=== PATIENT | female | born 1990 | race Asian ===

== ENCOUNTER 2019-07-29 01:31 | Emergency (ER) | payer MEDICAID ==
[~2019-07-29] VITALS: Ht 162.6 cm; Wt 52.2 kg
--- NOTE | 2019-07-29 01:43 | NUR ---
ED Nurse Note: Patient currently rendering urine sample, presents with complaints of hematuria since 2029. Will continue to monitor.
[2019-07-29 01:44] VITALS: BP 117/74
--- NOTE | 2019-07-29 01:52 | Emergency Room Report ---
History of Present Illness General Chief Complaint: Female Urogenital Problems Source: Patient Present Illness HPI Disclaimer: Please note that this report is being documented using DRAGON technology. This can lead to erroneous entry secondary to incorrect interpretation by the dictating instrument. HPI: Otherwise healthy 29-year-old female presents for evaluation of dysuria and hematuria. Symptoms began earlier this evening. Notes of burning sensation and urinary frequency over the past few hours. Believes it may be a urinary tract infection and took Azo. LMP approximately 1 month ago but does not believe it is related to her period. Denies any flank pain, fever, chills, vomiting or diarrhea. PMH: Denies PSH: Denies Allergies: Macrolides Social Hx: Denies Allergies: Coded Allergies: No Known Allergies (Unverified , 07/29/19) Patient History Last Menstrual Period: 07/03/19 Now: No : 2 Para: 2 Nursing Documentation-PMH Past Medical History: No History, Except For Review of Systems All Other Systems: negative except mentioned in HPI Physical Exam Vital Signs Date Time Temp Pulse Resp B/P (MAP) Pulse Ox O2 Delivery O2 Flow Rate FiO2 07/29/19 01:39 99.5 70 18 117/74 (88) 99 Room Air General: Awake and alert, no acute distress HEENT: NC/AT. EOMI. Resp: Normal work of breathing Abdomen: Nondistended, soft. Mild tenderness in the suprapubic region. No CVA tenderness Skin: Intact. No abrasions, laceration or rash over the exposed skin MSK: Normal tone and bulk. Moving all extremities. No obvious deformity. Neuro: Awake and alert. Mentating appropriately Medical Decision Making Diagnostic Impression: Primary Impression: Urinary tract infection ER Course 29-year-old female presents for evaluation of dysuria and hematuria. UA and hCG test were ordered on arrival. Shows urinary tract infection with a negative hCG. The patient be started on Keflex and discharged to follow-up with her PMD. Stable vital signs and no clinical evidence of pyelonephritis. We discussed reasons to return to the emergency department. She understands and agrees with this treatment plan. Laboratory Tests Test 07/29/19 01:40 Urine Color Angela Urine Appearance Cloudy Urine pH 6.5 (4.5-8.0) Urine Specific Wolverine 1.010 (1.005-1.035) Urine Protein 3+ (NEGATIVE) H Urine Glucose (UA) Negative (NEGATIVE) Urine Ketones Negative (NEGATIVE) Urine Blood 5+ (NEGATIVE) H Urine Nitrite Positive (NEGATIVE) H Urine Bilirubin 1+ (NEGATIVE) H Urine Ictotest Positive (NEGATIVE) Urine Urobilinogen 1 MG/DL (0.0-1.0) H Urine Leukocyte Esterase 3+ (NEGATIVE) H Urine RBC 20-30 /HPF (0 - 2) H Urine WBC Tntc /HPF (0 - 2) H Urine Squamous Epithelial Cells Moderate /LPF (NONE/OCC) H Urine Bacteria Many /HPF (NONE) H Urine HCG, Qualitative Negative (NEGATIVE) Last Vital Signs Date Time Temp Pulse Resp B/P (MAP) Pulse Ox O2 Delivery O2 Flow Rate FiO2 07/29/19 01:44 99.5 86 18 117/74 99 Room Air Disposition: HOME, SELF-CARE Condition: Stable Scripts Cephalexin* (KEFLEX*) 500 Mg Capsule 500 MG ORAL EVERY 12 HOURS, #14 CAP 0 Refills Prov: Amadeo Quintanilla MD 07/29/19 Amadeo Quintanilla MD Jul 29, 2019 01:52
--- NOTE | 2019-07-29 01:53 | NUR ---
ED Nurse Note: Patient's mom is at bedside.
--- NOTE | 2019-07-29 01:54 | NUR ---
ED Nurse Note: Urine specimen collected and walked down to lab.
[2019-07-29 02:08] LABS: BILIRUBIN, URINE 1+ (NEGATIVE); GLUCOSE, URINE (UA) NEGATIVE (NEGATIVE); KETONES,URINE NEGATIVE (NEGATIVE); LEUKOCYTE ESTERASE ,URINE 3+ (NEGATIVE); NITRITE,URINE POSITIVE (NEGATIVE); PH,URINE 6.5 (4.5-8.0); PROTEIN,URINE 3+ (NEGATIVE); UROBILINOGEN,URINE 1 MG/DL (0.0-1.0)
[2019-07-29 02:18] LABS: APPEARANCE,URINE CLOUDY; COLOR,URINE AMBER
[2019-07-29] MEDS ORDERED: CEPHALEXIN500 MG ORAL (02:23)
[2019-07-29 02:30] VITALS: BP 117/74
--- NOTE | 2019-07-29 02:30 | NUR ---
ED Nurse Note: Patient cleared for discharge by ERMD. Patient verbalized understanding of discharge instructions. ID band removed. Patient departed with all belongings accompanied by her mother.
== END 2019-07-29 02:31 | disposition home or self-care (01) ==
LOC: EMR 01:59
DX: N39.0 Urinary tract infection, site not specified (principal); Z88.8 Allergy status to other drugs, medicaments and biological substances
CPT/HCPCS: 81003; 81025; 87086; Z7502; 99283